=== PATIENT | male | born 1945 | race Caucasian/White ===

== ENCOUNTER 2016-09-25 19:50 | Observation (INO) | payer OTHER ==
[~2016-09-25] VITALS: Ht 167.6 cm; Wt 80.4 kg
[~2016-09-25 19:50] MED LIST: AMLODIPINE BESYL5 MG PO; APRESOLINE50 MG PO; ASPIR 8181 M1 PO; ASPIRIN81 M2 PO; ATENOLOL50 MG PO; ATROVENT 0.03%30 ML BOTH NARES; BABY ASPIRIN81 MG PO; CRESTOR10 MG PO; CRESTOR20 MG PO; Diflucan PO; FAMOTIDINE20 MG PO; GEMFIBROZIL600 MG PO; Gemfibrozil PO; HYDROCHLOROTHIA25 MG PO; Hydrodiuril,Oretic,E PO; K-DUR10 MEQ PO; K-DUR20 MEQ PO; KAPIDEX60 MG PO; LIPITOR40 MG PO; LOPRESSOR50 MG PO; METFORMIN HCL500 M4 PO; NIASPAN,SLO-NI500 MG PO; NIASPAN500 MG PO; NORVASC2.5 MG PO; PLAVIX75 MG PO; PROCARDIA XL30 MG PO; PROTONIX40 MG PO; Pepcid PO; TRAMADOL HCL50 MG PO; Tenormin PO; VOLTAREN 1% GE100 GM TP; VYTORIN 10/41 TABLET PO
[2016-09-25 21:18] LABS: HEMATOCRIT 37.6 % (38.0-50.0); MCH 25.2 PG (29.0-34.0); MCHC 32.2 G/DL (30.0-36.0); MCV 78.3 FL (86-99); MEAN PLAT.VOLUME 9.6 uM^3 (9.0-12.4); PLATELET COUNT 237 K/uL (156-360); RBC DIS.WIDTH-CV 16.5 % (11.8-14.6); RBC DIS.WIDTH-SD 45.3 % (39-53); WHITE BLOOD COUNT 6.5 K/uL (4.1-10.2)
[2016-09-25 21:32] LABS: CHLORIDE 106 mEq/L (99-109); SODIUM 142 mEq/L (136-147)
[2016-09-25 21:34] LABS: GLUCOSE 155 mg/dL (70-99)
[2016-09-25 21:35] LABS: ANION GAP 7 MEQ/L (2-14)
[2016-09-25 21:38] LABS: GFR ESTIMATE (CALCULATED) > 59 mL/min/; UREA NITROGEN (BUN) 17 mg/dL (9-23)
[2016-09-25 21:39] LABS: TROP-I INTERPRETATION NEGATIVE; TROPONIN-I < 0.01 ng/mL (0.0-0.30)
[2016-09-26 03:48] LABS: TROP-I INTERPRETATION NEGATIVE; TROPONIN-I < 0.01 ng/mL (0.0-0.30)
[2016-09-26] MEDS ORDERED: ZOFRAN ODT8 MG PO (12:08)
[2016-09-26] MEDS ORDERED: SENOKOT,SENN1 TABLET PO (12:08)
[2016-09-26] MEDS ORDERED: TRAMADOL HCL50 MG PO (12:09)
[2016-09-26] MEDS ORDERED: EXTRA STRENGTH500 M1 PO (12:10)
[2016-09-26] MEDS ORDERED: COLACE100 MG PO (12:10)
[2016-09-26 14:40] VITALS: BP 193/83
[2016-09-26 16:12] LABS: TROP-I INTERPRETATION NEGATIVE; TROPONIN-I < 0.01 ng/mL (0.0-0.30)
[2016-09-26 20:20] VITALS: BP 146/70
[2016-09-26] MEDS ORDERED: NIFEDIPINE ER90 MG PO (21:47)
== END 2016-09-26 22:56 | disposition home or self-care (01) ==
LOC: EME 19:50 → EDOF 09-26 12:53 → 5WEST 09-26 14:32
PROVIDERS: Internal Medicine; Personal Emergency Response Attendant
DX: R07.89 Other chest pain (principal); I12.9 Hypertensive chronic kidney disease with stage 1 through stage 4 chronic kidney disease, or unspecified chronic kidney disease; K22.4 Dyskinesia of esophagus; I25.10 Atherosclerotic heart disease of native coronary artery without angina pectoris; Z98.61 Coronary angioplasty status; K27.9 Peptic ulcer, site unspecified, unspecified as acute or chronic, without hemorrhage or perforation; C34.11 Malignant neoplasm of upper lobe, right bronchus or lung; E78.5 Hyperlipidemia, unspecified; N18.9 Chronic kidney disease, unspecified; I48.91 Unspecified atrial fibrillation; Z95.810 Presence of automatic (implantable) cardiac defibrillator; M79.7 Fibromyalgia; Z79.82 Long term (current) use of aspirin; Z79.02 Long term (current) use of antithrombotics/antiplatelets; Z82.49 Family history of ischemic heart disease and other diseases of the circulatory system; Z88.8 Allergy status to other drugs, medicaments and biological substances
CPT/HCPCS: 71020; 80048; 82948; 84484; 85027; 93005; 99281; 99284; G0378; J1815

== ENCOUNTER 2017-08-24 18:12 | Emergency (ER) | payer OTHER ==
[~2017-08-24] VITALS: Ht 167.6 cm; Wt 84.9 kg
[~2017-08-24 18:12] MED LIST changes: +COLACE100 MG PO; +EXTRA STRENGTH500 M1 PO; +NIFEDIPINE ER90 MG PO; +SENOKOT,SENN1 TABLET PO; +ZOFRAN ODT8 MG PO
[2017-08-24 19:27] LABS: MCH 24.5 PG (29.0-34.0); MCHC 31.5 G/DL (30.0-36.0); MEAN PLAT.VOLUME 9.4 uM^3 (9.0-12.4); PLATELET COUNT 202 K/uL (156-360); RBC DIS.WIDTH-CV 15.2 % (11.8-14.6); RBC DIS.WIDTH-SD 43.3 % (39-53); RED BLOOD COUNT 4.36 M/uL (4.00-5.50); WHITE BLOOD COUNT 6.5 K/uL (4.1-10.2)
[2017-08-24 19:33] LABS: INTER. NORMALIZED RATIO 1.3; PROTHROMBIN TIME 14.8 SEC (10.2-12.9)
[2017-08-24 19:49] LABS: CHLORIDE 107 mEq/L (99-109); POTASSIUM 3.7 mEq/L (3.7-5.4); SODIUM 138 mEq/L (136-147)
[2017-08-24 19:51] LABS: GLUCOSE 214 mg/dL (70-99)
[2017-08-24 19:52] LABS: ANION GAP 8 MEQ/L (2-14)
[2017-08-24 19:55] LABS: GFR ESTIMATE (CALCULATED) 58 mL/min/
[2017-08-24 19:56] LABS: UREA NITROGEN (BUN) 18 mg/dL (9-23)
[2017-08-24 19:59] LABS: TROP-I INTERPRETATION NEGATIVE; TROPONIN-I < 0.01 ng/mL (0.0-0.30)
[2017-08-24 22:45] LABS: TROP-I INTERPRETATION NEGATIVE; TROPONIN-I < 0.01 ng/mL (0.0-0.30)
[2017-08-24 22:53] VITALS: BP 156/78
== END 2017-08-24 22:58 | disposition home or self-care (01) ==
LOC: EME 18:12
PROVIDERS: Physician Assistant Medical
DX: M79.7 Fibromyalgia (principal); R07.9 Chest pain, unspecified; I11.0 Hypertensive heart disease with heart failure; I50.9 Heart failure, unspecified; I25.10 Atherosclerotic heart disease of native coronary artery without angina pectoris; I25.2 Old myocardial infarction; Z79.02 Long term (current) use of antithrombotics/antiplatelets; Z95.5 Presence of coronary angioplasty implant and graft; Z79.82 Long term (current) use of aspirin; Z87.891 Personal history of nicotine dependence; K21.9 Gastro-esophageal reflux disease without esophagitis; F32.9 Major depressive disorder, single episode, unspecified; F41.9 Anxiety disorder, unspecified
CPT/HCPCS: 71010; 80048; 84484; 85027; 85610; 93005; 99281; 99285